=== PATIENT | male | born 1980 | race Caucasian/White ===

== ENCOUNTER 2021-12-11 07:38 | Emergency (ER) | payer SELFPAY ==
[2021-12-11 07:48] VITALS: BP 149/104; PULSE 96; RESP 16; TEMP 36.8; O2SAT 99; BMI 25.8
--- NOTE | 2021-12-11 08:04 | HMH.EDEYEP ---
Discharge Plan Disposition Chief Complaint: Eye Problems Prescriptions Prescriptions: No Action No Known Home Medications Referrals Follow up/Referrals: Provider,Riley, [Primary Care Provider] - See instructions Balta Kern [facility] [Referring] - See instructions Activity Restrictions/Add. Instructions Additional Instructions/Restrictions: Use eye patch for the next 2 days to protect eye, use antibiotic ointment 3 times daily and before going to bed. Return to the emergency department if you are not seeing improvement in symptoms in 2 to 3 days. Additionally if you are experiencing trouble you can follow-up with ophthalmology and information for local lpn was provided Clinical Impressions Clinical Impression: Corneal abrasion Instructions Patient Instructions: DI for Corneal Abrasion, Polymyxin B and Trimethoprim Ophthalmic Discharge ED Provider: Brent Bobby Eye Problem HPI General Chief complaint: Eye Problems Stated complaint: Walked into tree branch 12/11 RT eye pain Time Seen by Provider: 12/11/21 08:04 Mode of Arrival: Ambulatory Source of Information: Patient Limitations: No Limitations Description of Symptoms (Recalled from ER Triage Doc. by RN): Pt c/o injury to Lt eye. C/O pain, swelling, watering and blurry vision. Advises that he turned around and walked into a tree limb. States that the tree limb was as big around as his thumb and that the tree limb broke once hitting him in the eye. History of Present Illness HPI Narrative: 42-year-old male, states tetanus is up-to-date, presents with left eye injury. He states he turned around this morning and walked into a small tree limb struck him in the left eye. After that he reports photophobia, eye pain described as burning, watering. He denies loss of vision, double vision, pain with eye movement, laceration or other injury. He does report some mild blurry vision, he denies any symptomatic treatment prior to this visit, came straight to the emergency department. Related Data Patient tetanus UTD: Yes Home Medications Medication Instructions Recorded Confirmed No Known Home Medications 12/11/21 12/11/21 Allergies Allergy/AdvReac Type Severity Reaction Status Date / Time No Known Allergies Allergy Verified 12/11/21 07:53 [facility] Social History Smoking Status: Current every day smoker alcohol intake: never current occupational status: employed Travel in the last 8 weeks: None ROS Obtained: Yes Systems reviewed as appropriate & no additional complaints except as documented Constitutional Constitutional: Reports system reviewed and no additional complaints, except as documented Eyes Eyes: Reports as per HPI ENT Ears, Nose, Mouth, and Throat: Reports system reviewed and no additional complaints, except as documented Cardiovascular Cardiovascular: Reports system reviewed and no additional complaints, except as documented Respiratory Respiratory: Reports system reviewed and no additional complaints, except as documented Gastrointestinal Gastrointestingal: Reports system reviewed and no additional complaints, except as documented Genitourinary Male Genitourinary: Reports system reviewed and no additional complaints, except as documented Musculoskeletal Musculoskeletal: Reports system reviewed and no additional complaints, except as documented Integumentary/Breasts Skin/Breast: Reports system reviewed and no additional complaints, except as documented Neurologic Neurologic: Reports system reviewed and no additional complaints, except as documented Endocrine Endocrine: Reports system reviewed and no additional complaints, except as documented Hematologic/Lymphatic Henatologic/Lymphatic: Reports system reviewed and no additional complaints, except as documented Allergic/Immunologic Allergic/Immunologic: Reports system reviewed and no additional complaints,
--- NOTE | 2021-12-11 08:05 | PC.NURSE ---
Visual Acuity: Both: 20/50 Right: 20/30 Left: N/A; Pt stated It's just blurry. I can't even see the E that I know is at the top
[2021-12-11 09:08] VITALS: BP 132/101; PULSE 93; RESP 18; TEMP 36.8; O2SAT 99
== END 2021-12-11 09:09 | disposition home or self-care (01) ==
PROVIDERS: Emergency Provider Emergency Medicine
DX: S05.01XA Injury of conjunctiva and corneal abrasion without foreign body, right eye, initial encounter (principal); W20.8XXA Other cause of strike by thrown, projected or falling object, initial encounter
CPT/HCPCS: 99282